=== PATIENT | male | born 2000 | race Hispanic/Latino ===

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

== ENCOUNTER 2022-04-11 21:48 | Emergency (ER) | payer OTHER, SELFPAY | END 2022-04-12 02:15 | disposition home or self-care (01) | LOC: ERS 21:48 | DX: S16.1XXA Strain of muscle, fascia and tendon at neck level, initial encounter (principal); V89.9XXA Person injured in unspecified vehicle accident, initial encounter | CPT/HCPCS: 70450; 72072; 72125 ==